=== PATIENT | female | born 1955 | race African-American/Black ===

== ENCOUNTER 2020-08-25 16:05 | Outpatient (CLI) | payer OTHER | END 2020-08-25 16:06 | disposition home or self-care (01) | LOC: CSHCT 16:05 | PROVIDERS: ATTEND Family Medicine | DX: M54.5 Low back pain (principal); M54.30 Sciatica, unspecified side; M47.816 Spondylosis without myelopathy or radiculopathy, lumbar region | CPT/HCPCS: 72131 ==